=== PATIENT | female | born 1990 | race Caucasian/White ===

== ENCOUNTER → 2016-07-30 | Outpatient (REF) | payer OTHER | LOC: M LAB REF 09:35 | PROVIDERS: ATTEND Physician Assistant | DX: J02.9 Acute pharyngitis, unspecified (principal) ==

== ENCOUNTER → 2017-01-14 | Outpatient (REF) | payer OTHER ==
[2017-01-14 13:56] LABS: CONTROL LINE MONO INT CTR LINE PRESENT
== END ==
LOC: M SFHCCLAY 08:17
PROVIDERS: ATTEND Family Medicine
DX: R53.83 Other fatigue (principal)

== ENCOUNTER → 2017-10-23 | Outpatient (REF) | payer OTHER | LOC: M SFHCWAGY 13:45 | DX: Z12.4 Encounter for screening for malignant neoplasm of cervix (principal) ==

== ENCOUNTER → 2018-12-24 | Outpatient (REF) | payer OTHER | LOC: M SFHCCLAY 11:22 | PROVIDERS: ATTEND Nurse Practitioner Family | DX: R50.9 Fever, unspecified (principal) ==

== ENCOUNTER → 2019-03-10 | Outpatient (REF) | payer OTHER ==
[2019-03-10 14:58] LABS: HCG, SERUM QUALITATIVE POSITIVE (NEGATIVE)
[2019-03-10 15:30] LABS: HCG, SERUM QUANTITATIVE 169 MIU/ML
== END ==
LOC: M SFHCCLAY 09:17
PROVIDERS: ATTEND Nurse Practitioner Family
DX: N91.2 Amenorrhea, unspecified (principal)

== ENCOUNTER → 2019-05-31 | Outpatient (REF) | payer OTHER | LOC: M LABDRAWC 16:31 | PROVIDERS: ATTEND Midwife | DX: Z34.82 Encounter for supervision of other normal pregnancy, second trimester (principal); Z36.89 Encounter for other specified antenatal screening ==

== ENCOUNTER → 2019-10-01 | Outpatient (REF) | payer BC ==
[2019-10-01 16:59] LABS: ALBUMIN 2.7 GM/DL (3.2-5.2); ALT/SGPT 23 U/L (12-78); BILIRUBIN,DIRECT 0.1 MG/DL (0.0-0.2); BILIRUBIN,TOTAL 0.4 MG/DL (0.2-1.0); BLOOD UREA NITROGEN 7 MG/DL (7-18); CALCIUM LEVEL 8.8 MG/DL (8.5-10.1); CARBON DIOXIDE LEVEL 25 MEQ/L (21-32); CHLORIDE LEVEL 109 MEQ/L (98-107); CREATININE FOR GFR 0.58 MG/DL (0.55-1.30); GLOMERULAR FILTRATION RATE > 60.0 (>60); GLUCOSE, FASTING 112 MG/DL (70-100); POTASSIUM SERUM 3.7 MEQ/L (3.5-5.1); SODIUM LEVEL 140 MEQ/L (136-145); TOTAL PROTEIN 6.1 GM/DL (6.4-8.2)
== END ==
LOC: M LABDRAWC 15:55
PROVIDERS: ATTEND Midwife
DX: Z34.83 Encounter for supervision of other normal pregnancy, third trimester (principal); Z36.89 Encounter for other specified antenatal screening

== ENCOUNTER → 2020-07-30 | Outpatient (REF) | payer BC | LOC: M LAB REF 10:23 | PROVIDERS: ATTEND Physician Assistant | DX: Z11.59 Encounter for screening for other viral diseases (principal) ==

== ENCOUNTER → 2021-03-26 | Outpatient (REF) | payer BC | LOC: M LAB REF 15:29 | PROVIDERS: ATTEND Obstetrics & Gynecology Obstetrics | DX: Z13.79 Encounter for other screening for genetic and chromosomal anomalies (principal); Z3A.00 Weeks of gestation of pregnancy not specified ==

== ENCOUNTER → 2022-03-19 | Outpatient (CLI) | payer BC | LOC: M SOG 14:25 | PROVIDERS: ATTEND Physician Assistant | DX: M67.441 Ganglion, right hand (principal) ==

== ENCOUNTER → 2022-04-08 | Outpatient (CLI) | payer BC | LOC: M CLY 13:55 | PROVIDERS: ATTEND Nurse Practitioner Family | DX: M53.3 Sacrococcygeal disorders, not elsewhere classified (principal) ==

== ENCOUNTER → 2023-04-18 | Outpatient (CLI) | payer BC | LOC: M WHC 11:00 | PROVIDERS: ATTEND Obstetrics & Gynecology | DX: Z34.82 Encounter for supervision of other normal pregnancy, second trimester (principal) ==

== ENCOUNTER 2023-05-05 00:27 | Outpatient (CLI) | payer BC ==
[~2023-05-05] VITALS: Ht 152.4 cm; Wt 71.4 kg
[2023-05-05] MEDS ORDERED: CETI10CA2 PO (00:52)
[2023-05-05] MEDS ORDERED: PRENTAB9 PO (00:52)
[2023-05-05] MEDS ORDERED: VITA100T59 PO (00:52)
[2023-05-05] MEDS ORDERED: NOXI1TAB PO (00:55)
[2023-05-05] MEDS ORDERED: AZIT-12 PO ×2 (00:55)
[2023-05-05] MEDS ORDERED: HOME MED LIST COMPLETE! XX SCH (01:20)
[2023-05-05 01:31] VITALS: BP 105/60
== END 2023-05-05 02:35 | disposition home or self-care (01) ==
LOC: M LDO 00:27
PROVIDERS: ATTEND Obstetrics & Gynecology
DX: O26.852 Spotting complicating pregnancy, second trimester (principal); Z3A.22 22 weeks gestation of pregnancy
CPT/HCPCS: 59025; 76815; 86850; 86900; 86901; G0463

== ENCOUNTER 2025-07-24 17:26 | Outpatient (CLI) | payer BC ==
[~2025-07-24] VITALS: Ht 152.4 cm; Wt 77.5 kg
[~2025-07-24 17:26] MED LIST: AZIT-12 PO; CETI10CA2 PO; NOXI1TAB PO; PRENTAB9 PO; VITA100T59 PO
[2025-07-24] MEDS ORDERED: HOME MED LIST COMPLETE! XX SCH (17:45)
[2025-07-24 17:54] VITALS: BP 116/62
[2025-07-24 18:33] LABS: PLATELET COUNT, AUTOMATED 229 10^3/uL (150-450)
[2025-07-24 18:35] LABS: APPEARANCE, URINE HAZY (CLEAR); BACTERIA, URINE AUTO 2+ (NEGATIVE); BILIRUBIN, URINE AUTO NEGATIVE (NEGATIVE); BLOOD, URINE BLOOD NEGATIVE (NEGATIVE); GLUCOSE, URINE (UA) AUTO NEGATIVE (NEGATIVE); KETONE, URINE AUTO 2+ mg/dL (NEGATIVE); LEUKOCYTE ESTERASE, URINE AUTO TRACE (NEGATIVE); MUCUS, URINE SMALL (NEGATIVE); NITRITE, URINE AUTO NEGATIVE (NEGATIVE); PROTEIN, URINE AUTO NEGATIVE (NEGATIVE); RBC, URINE AUTO 2 /HPF (0-3); SPECIFIC GRAVITY URINE AUTO 1.017 (1.002-1.035); SQUAMOUS EPITHELIAL CELL UR AU 6 /HPF (0-6); UROBILINOGEN, URINE AUTO 0.2 mg/dL (0.0-2.0); WBC, URINE AUTO 5 /HPF (0-3)
[2025-07-24 18:48] VITALS: BP 106/57
[2025-07-24 19:02] LABS: ALT/SGPT 13 U/L (7.0-40); AST/SGOT 18 U/L (<34); CALCIUM LEVEL 8.2 MG/DL (8.5-10.1); CARBON DIOXIDE LEVEL 21 MMOL/L (20-31); CHLORIDE LEVEL 107 MMOL/L (98-107); CREATININE FOR GFR 0.48 MG/DL (0.55-1.30); GLOMERULAR FILTRATION RATE > 90.0 (>60); POTASSIUM SERUM 3.5 MMOL/L (3.5-5.1); SODIUM LEVEL 139 MMOL/L (136-145)
[2025-07-24] MEDS ORDERED: ACETAMINOPHEN 500 MG TAB As Ordered ONE (19:53)
[2025-07-24] MEDS: ACETAMINOPHEN 500 MG TAB PO ONE (20:00)
[2025-07-24] MEDS: LR 1,000 ML IV ONE (20:14)
[2025-07-24] MEDS ORDERED: OSEL75CA2 PO (20:23)
[2025-07-24] MEDS ORDERED: OSELTAMIVIR PHOSPHATE 75 MG CAP PO ONE (21:00)
== END 2025-07-24 21:15 | disposition home or self-care (01) ==
LOC: M LDO 17:26
PROVIDERS: ATTEND Obstetrics & Gynecology
DX: O99.512 Diseases of the respiratory system complicating pregnancy, second trimester (principal); J10.1 Influenza due to other identified influenza virus with other respiratory manifestations; Z3A.27 27 weeks gestation of pregnancy
CPT/HCPCS: 36415; 59025; 80053; 81001; 85027; 87486; 87581; 87633; 87798; G0463